=== PATIENT | male | born 1995 | race Caucasian/White ===

== ENCOUNTER 2017-06-02 17:53 | Emergency (ER) | payer OTHER ==
--- NOTE | 2017-06-02 18:29 | ERPHSYRPT ---
- History of Present Illness Time Seen by Provider: 06/02/17 18:10 Source: patient Exam Limitations: clinical condition Patient Subjective Stated Complaint: pt states he lacerated right ring finger 5 days ago and is now worried about infection. Triage Nursing Assessment: pt pink, warm, dry. pt right ring finger has swelling , no drainage or redness noted. radial pulse strong. Physician History: PATIENT SUSTAINED LACERATION TO RIGHT RING FINGER 5 DAYS AGO NOW COMPLAINS OF PAIN WITH SWELLING AT SITE. NOW HAS PAIN UPON RANGE OF MOTION. DENIES DRAINAGE OR RED STREAKS FROM WOUND. Occurred: days ago Method of Injury: other (LACERATION) Quality: constant Severity of Pain-Max: moderate Severity of Pain-Current: moderate Extremities Pain Location: 4th finger: right Modifying Factors: Improves With: movement Allergies/Adverse Reactions: shellfish derived Allergy (Verified 06/02/17 18:06) Hx Tetanus, Diphtheria Vaccination/Date Given: Yes (up to date) Hx Influenza Vaccination/Date Given: Yes Hx Pneumococcal Vaccination/Date Given: No Immunizations Up to Date: Yes - Review of Systems Constitutional: No Symptoms, No Fever, No Chills Musculoskeletal: Injury - Past Medical History Pertinent Past Medical History: No - Past Surgical History Past Surgical History: Yes Other Surgical History: facial surgery - Social History Smoking Status: Current some day smoker Exposure to second hand smoke: No Drug Use: none Patient Lives Alone: No - Nursing Vital Signs Nursing Vital Signs: Initial Vital Signs Temperature 98.3 F Temperature Source Oral Pulse Rate 92 Respiratory Rate 18 Blood Pressure [Right Arm] 150/92 Pain Intensity 6 - Physical Exam Hand Exam: laceration (THERE IS A HEALING INCISIONAL WOUND 1CM OVER DORSUM RIGHT RING FINGER PIP JOINT SLIGHT SWELLING WITH ERYTHRMA, NO DRAINAGE, MARKED LIMITED RANGE OF MOTION), limited ROM Mental Status Exam: alert, oriented x 3 SpO2 Interpretation: normal SpO2: 96 Oxygen Delivery: Room Air Ordered Tests: Active Orders 24 hr Category Date Time Status Splint STAT Care 06/02/17 18:22 Ordered - Progress Progress Note: 06/02/17 18:28 AN ALUMINUM FINGER SPLINT PLACED BELOW RIGHT RING FINGER. Counseled pt/family regarding: diagnosis, need for follow-up - Departure Time of Disposition: 18:35 Departure Disposition: Home Clinical Impression: LOCALIZED CELLULITIS RIGHT RING FINGER Condition: Stable Critical Care Time: No Additional Instructions: CLEANSE WOUND WITH SOAP AND WATER TWICE DAILY. ANTIBIOTIC AUGMENTIN 875MG TWICE DAILY FOR 10 DAYS. NORCO 10/325 EVERY 4 HOURS FOR PAIN NEEDED. WATCH FOR SIGNS OF INFECTION, DRAINAGE, RED STEAKS OR SWELLING. MAINTAIN ALUMINUM SPLINT FOR 7 DAYS. MAY REMOVE SPLINT FOR BATHING. CONSULT YOUR FAMILY PHYSICIAN IN 1 WEEK. Prescriptions: Hydrocodone/APAP 10/325 mg [[place] 10/325 MG Tablet] 1 tab PO Q4H PRN PRN # 20 tablet PRN Reason: Pain Amox Tr/Potass Clav. 875 mg [Augmentin 875-125 Tablet] 875 mg PO BID #20 tablet
[2017-06-02 18:44] VITALS: BP 149/77; PULSE 76; O2SAT 98
== END 2017-06-02 18:44 | disposition home or self-care (01) ==
LOC: ED 17:53
DX: L03.011 Cellulitis of right finger (principal)
CPT/HCPCS: 99282; 99283